=== PATIENT | female | born 1935 | race Caucasian/White ===

== ENCOUNTER → 2016-09-22 | Outpatient (CLI) | payer MEDICARE ==
[~2016-09-22] MED LIST: methylPREDNISolone 80 MG/ML (DEPO MEDROL) VIAL IM ONE
== END ==
LOC: PMC 09:31
PROVIDERS: ATTEND Family Medicine
PROC: 3E0R33Z Introduction of Anti-inflammatory into Spinal Canal, Percutaneous Approach (ICD-10-PCS; principal; 2016-09-22)
DX: M54.5 Low back pain (principal)

== ENCOUNTER → 2016-11-08 | Outpatient (CLI) | payer MEDICARE ==
[~2016-11-08] MED LIST changes: +ALEN70TA2 PO; +ASPI-860 PO; +FLEC100T2 PO; +GABA300C PO; +LRT10T PO; -methylPREDNISolone 80 MG/ML (DEPO MEDROL) VIAL IM ONE
--- NOTE | 2016-11-08 17:09 | Diagnostic Imaging Report ---
PROCEDURE: MRI lumbar spine. TECHNIQUE: Multiplanar, multisequence MRI of the lumbar spine was performed without contrast. INDICATION: Low back pain radiating to the right leg. COMPARISON: None. DISCUSSION: Dextroscoliosis of the thoracolumbar spine is present. Discogenic endplate changes are noted within the lumbar spine. Grade 1 anterolisthesis is present at L3-L4 and L4-L5. There is grade 1 retrolisthesis noted at the L1-L2 level. No compression fracture identified. The conus medullaris is normal in position and morphology. The nerve roots of the cauda equina are unremarkable. The visualized paraspinal soft tissues are unremarkable. Degenerative changes as detail below: L1-L2: Prominent disc bulge involving the left paracentral region extending into the lateral aspect contributing to severe narrowing of the left lateral recess. There is left-sided ligamentum flavum thickening also present which indents the thecal sac. Advanced facet arthropathy is present. Severe left neural foraminal stenosis. Mild central canal stenosis overall. Advanced degenerative disc disease. L2-L3: Moderately advanced degenerative disc disease. Moderate diffuse disc bulge. Advanced facet arthropathy. Ligamentum flavum thickening. Dxer-vy-cksipbtd central canal stenosis. There is moderate right and severe left lateral recess stenosis. Moderate bilateral neural foraminal narrowing. L3-L4: Advanced degenerative disc disease. Small diffuse disc bulge. Advanced facet arthropathy. Moderate central canal stenosis. There is moderate left and qtrgnwlx-bh-yjezny right neural foraminal narrowing. L4-L5: Advanced degenerative disc disease. Small diffuse disc bulge. Advanced facet arthropathy. Severe narrowing of the bilateral lateral recesses. Mild central canal stenosis overall. There is cidfwjwa-hr-jkrvjv left and severe right neural foraminal stenosis. L5-S1: Advanced degenerative disc disease. Small diffuse disc bulge. Advanced facet arthropathy. No central canal stenosis. There is moderate left and severe right neural foraminal narrowing. IMPRESSION: 1. 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 There is severe neural foraminal stenosis on the right at the L4-L5 and L5-S1 level, which could account for patient's symptoms. There is no severe central canal stenosis identified at any level. Dictated by: Dictated on workstation # [id number]
== END ==
LOC: RAD 15:08
PROVIDERS: ATTEND Family Medicine
DX: G54.1 Lumbosacral plexus disorders (principal); M48.07 Spinal stenosis, lumbosacral region
CPT/HCPCS: 72148